=== PATIENT | male | born 1975 | race Caucasian/White ===

== ENCOUNTER 2021-09-12 02:20 | Emergency (ER) | payer BC ==
[~2021-09-12] VITALS: Ht 182.9 cm; Wt 81.6 kg
[2021-09-12] MEDS ORDERED: LIDOCAINE VISCUS 2% 15 ML UDC MM ONE (03:30)
[2021-09-12] MEDS ORDERED: LIDOCAINE VISCUS 2% 15 ML UDC ONE ×2 (03:32→03:35)
[2021-09-12 03:55] VITALS: BP 128/75
--- NOTE | 2021-09-12 03:55 | NUR ---
Patient discharged to home in stable condition. Written and verbal after care instructions given. Patient verbalizes understanding of instructions. Stressed follow up or return to ER for worsening s/s.
== END 2021-09-12 03:55 | disposition home or self-care (01) ==
LOC: ER 02:33
DX: R09.89 Other specified symptoms and signs involving the circulatory and respiratory systems (principal); Z88.0 Allergy status to penicillin
CPT/HCPCS: 70360; A4663